=== PATIENT | female | born 1995 | race African-American/Black ===

== ENCOUNTER → 2018-02-26 | Outpatient (CLI) | payer BC ==
--- NOTE | 2018-02-26 10:33 | RAD ---
3 views right third finger 02/26/2018 10:09 AM Indication: swelling for 2 weeks, nki Comparison: None available Findings: No evidence of fracture or dislocation is seen. No radiopaque foreign body is identified. No periosteal reaction is seen. No lytic or blastic process is identified. Relative extension is seen at the DIP joint with flexion of the PIP joint. A ligamentous or tendinous injury is difficult to completely exclude in this setting. Correlate with clinical exam findings. IMPRESSION: 1. No evidence of acute fracture or dislocation 2. Extension at the mild extension at the DIP joint with PIP joint and flexion. A ligamentous or tendinous injury is difficult to completely exclude in this setting. Correlate with clinical exam findings. Electronically signed by: Berlin Bojorquez MD (02/26/2018 10:30 AM) [id number]
== END | disposition home or self-care (01) ==
LOC: PMG 09:57
PROVIDERS: ATTEND Neuromusculoskeletal Medicine & OMM
DX: M79.644 Pain in right finger(s) (principal)
CPT/HCPCS: 73140